=== PATIENT | male | born 1980 | race African-American/Black ===

== ENCOUNTER 2016-08-13 08:32 | Emergency (ER) | payer MEDICAID ==
[~2016-08-13] VITALS: Ht 172.7 cm; Wt 80.0 kg
[2016-08-13] MEDS ORDERED: SODIUM CHLORIDE 0.9% 1,000 ML IV ONE (08:48)
[2016-08-13] MEDS ORDERED: METHYLPREDNISOLONE SOD SUCC 125 MG/2 ML VIAL IV STA (08:48)
[2016-08-13] MEDS ORDERED: IPRATROPIUM BROMIDE (0.02%) 0.5MG/2.5ML NEB HHN STA (08:48)
[2016-08-13] MEDS ORDERED: ALBUTEROL (0.083%) 2.5MG/3ML NEB HHN STA (08:48)
[2016-08-13] MEDS ORDERED: AZITHROMYCIN 500 MG TABLET PO ONE (09:00)
[2016-08-13] MEDS ORDERED: MAGNESIUM 2 G PREMIX 50 ML IV ONE (09:00)
[2016-08-13] MEDS ORDERED: IPRATROPIUM/ALBUTEROL 0.5-3(2.5)MG/3ML NEB ONE (09:22)
[2016-08-13 12:28] VITALS: BP 125/64
== END 2016-08-13 12:34 | disposition home or self-care (01) ==
LOC: ER 10:36
DX: J45.909 Unspecified asthma, uncomplicated (principal)
CPT/HCPCS: 71010; 94640; 96365; 96375; 99284; J2930; J3475; J7030; J7611; Z7610; J7620